=== PATIENT | male | born 1960 | race Caucasian/White ===

== ENCOUNTER 2016-11-25 07:30 | Day surgery (SDC) | payer OTHER ==
[2016-11-25] MEDS ORDERED: LIDOCAINE HCL 1% MPF SOL ONE (08:09)
[2016-11-25] MEDS ORDERED: PROPOFOL 500 MG/50 ML EMU IV ONE (08:09)
[2016-11-25 09:07] VITALS: BP 133/85; PULSE 50; RESP 18; TEMP 96.7; O2SAT 99
== END 2016-11-25 10:12 | disposition home or self-care (01) | DRG 951 ==
LOC: SURG 07:30
PROVIDERS: ATTEND Surgery
DX: Z12.11 Encounter for screening for malignant neoplasm of colon (principal); K64.8 Other hemorrhoids
CPT/HCPCS: J2001; J2704